=== PATIENT | female | born 1970 | race Caucasian/White ===

== ENCOUNTER 2020-01-03 08:51 | Outpatient (CLI) | payer OTHER, SELFPAY ==
--- NOTE | ~2020-01-03 | MM_ITS ---
EXAMINATION: MM screening silvino BI w mamadou HISTORY: Screening TECHNIQUE: Craniocaudal and mediolateral oblique 3-D tomosynthesis images were obtained and synthetic 2-D images were generated. CAD analysis was submitted and interpreted. COMPARISON: Comparison to multiple prior studies sequentially, with oldest reviewed study dated 06/2013. BREAST PARENCHYMAL COMPOSITION: The breasts are heterogeneously dense, which may obscure small masses . FINDINGS: There is a new focal asymmetry in the upper outer quadrant of the left breast. The right br east is stable without evidence for malignancy. IMPRESSION: 1. New focal left breast asymmetry, upper outer quadrant. 2. Additional mammographic views and possible breast ultrasound are recommended. BI-RADS Category 0: Incomplete: Needs additional imaging evaluation. Reviewed, dictated and finalized at location A. IMPRESSION: 1. New focal left breast asymmetry, upper outer quadrant. 2. Additional mammographic views and possible breast ultrasound are recommended . BI-RADS Category 0: Incomplete: Needs additional imaging evaluation.
== END 2020-01-03 08:52 | disposition home or self-care (01) ==
PROVIDERS: PCP Family Medicine; Visit Provider Family Medicine
DX: Z12.31 Encounter for screening mammogram for malignant neoplasm of breast (principal); R92.8 Other abnormal and inconclusive findings on diagnostic imaging of breast
CPT/HCPCS: 77063; 77067

== ENCOUNTER 2020-01-26 11:49 | Outpatient (CLI) | payer OTHER, SELFPAY ==
--- NOTE | ~2020-01-26 | MMUS_ITS ---
EXAMINATION: MM diagnostic mammo unilat LT, US breast LT limited HISTORY: New focal mammographic asymmetry of upper outer quadrant of left breast on 01/03/2020 screenin g mammogram examination TECHNIQUE: Additional 3-D tomosynthesis images of the left breast were performed and synthetic 2-D im ages were generated. Rolled medial craniocaudal and rolled lateral craniocaudal views were performed. CAD analysis was submitted and interpreted. High resolution upper outer quadrant left breast ultraso und was performed. COMPARISON: 01/03/2020 bilateral digital screening mammogram FINDINGS: MAMMOGRAPHIC FINDINGS: No reproducible mass or architectural distortion or any malignant calcification, skin thickening or r etraction is evident. The heterogeneous dense stroma however may obscure a mass; upper outer quadrant left breast ultrasound examination was performed ULTRASOUND: 1:00 5 cm from nipple: 5 x 6 x 8 mm sonolucency with through transmission posterior enhancement brenda tible with simple cyst 2:00 8 cm from nipple: 2.9 x 3.4 mm simple cyst IMPRESSION: 1. No mammographic evidence of malignancy 2. Routine mammographic screening is recommended. BI-RADS Category 2: Benign finding(s). Reviewed, dictated and finalized at location A. IMPRESSION: 1. No mammographic evidence of malignancy 2. Routine mammographic screening is recommended. BI-RADS Category 2: Benign finding(s).
== END 2020-01-26 11:50 | disposition home or self-care (01) ==
LOC: ANHIMG 11:50
PROVIDERS: PCP Family Medicine; Visit Provider Family Medicine
DX: R92.2 Inconclusive mammogram (principal)
CPT/HCPCS: 76642; 77065

== ENCOUNTER 2021-02-21 09:10 | Outpatient (CLI) | payer OTHER, SELFPAY ==
--- NOTE | ~2021-02-21 | MM_ITS ---
EXAMINATION: MM screening silvino BI w mamadou HISTORY: Screening mammogram TECHNIQUE: Craniocaudal and mediolateral oblique 3-D tomosynthesis images were obtained and synthetic 2-D images were generated. CAD analysis was submitted and interpreted. COMPARISON: 01/26/2020 diagnostic left mammogram and limited left breast ultrasound 01/03/2020, 10/06/2018, 09/24/2017 bilateral digital screening mammogram examinations BREAST PARENCHYMAL COMPOSITION: There are scattered areas of fibroglandular density. FINDINGS: There is no evidence of suspicious mass, calcification, or architectural distortion to sugg est malignancy in either breast. There has been no suspicious interval change. IMPRESSION: 1. No mammographic evidence of malignancy. 2. Recommend routine screening mammography in one year. BI-RADS Category 2: Benign finding(s). Reviewed, dictated and finalized at location A.
== END 2021-02-21 09:11 | disposition home or self-care (01) ==
LOC: ANHIMG 09:12
PROVIDERS: PCP Family Medicine; Visit Provider Family Medicine
DX: Z12.31 Encounter for screening mammogram for malignant neoplasm of breast (principal)
CPT/HCPCS: 77063; 77067

== ENCOUNTER 2021-04-18 00:52 | Day surgery (SDC) | payer OTHER, MEDICAID, SELFPAY ==
[2021-04-07 11:22] VITALS: BMI 33.3
[2021-04-18 09:52] VITALS: BP 136/68; PULSE 67; RESP 18; TEMP 35.8; O2SAT 97; BMI 36.1
[2021-04-18] MEDS: LACTATED RINGERS 1,000 ML 150 ML IV CONT (10:24)
--- NOTE | 2021-04-18 10:24 | WPDANESEPPF ---
Anes - Initial Pre Proc Eval Procedure: Operation Date: 04/18/21 11:00 Proposed Procedures p Esophagogastroduodenoscopy - Baljeet Cloud MD Date/Time: 04/18/21 10:24 Surgeon: Baljeet Cloud MD Pre Op Diagnosis: dysphagia, GERD Patient Data Age: 50 Gender: F Height: 1.65 m Weight: 98.4 kg Last Vital Signs Temp 35.8 C L 04/18/21 09:52 Pulse 67 04/18/21 09:52 Resp 18 04/18/21 09:52 BP 136/68 04/18/21 09:52 Pulse Ox 97 04/18/21 09:52 Allergies Allergy/AdvReac Type Severity Reaction Status Date / Time No Known Allergies Allergy Verified 04/18/21 10:01 Home Medications Medication Instructions Recorded Confirmed Type famotidine 40 mg tablet 40 mg PO Q12H #180 tablet 07/10/20 04/18/21 Rx atorvastatin 10 mg tablet 10 mg PO DAILY #90 tablet 04/07/21 04/18/21 Rx breonna.[id number] 1 tablet PO DAILY 04/07/21 04/18/21 History [Apple Cider Vinegar Diet] lisinopril 5 mg tablet 5 mg PO DAILY #90 tablet 04/07/21 04/18/21 Rx Patient hx anesthesia problems: none Family hx anesthesia problems: none Results Review: All pre-operative results and documents have been reviewed as part of the pre-operative evaluation. [facility] Past Medical History Medical History (Updated 03/13/21 @ 11:19 by Angelic Mckeon MD) Prediabetes (06/16/17) Family History Family History Father Patient's father is , Onset Age: 46 Sibling Family history of multiple sclerosis Diabetes mellitus Family history of cardiovascular disease Mother Hypertension Family history of cardiovascular disease Family history of malignant neoplasm of breast in first degree relative Other Cerebrovascular accident Family history of Hodgkin's lymphoma Family history of allergic disorder Family history of arthritis Family history of attention deficit hyperactivity disorder (ADHD) Family history of bipolar disorder Family history of glaucoma Family history of kidney disease Family history of malignant neoplasm Family history of malignant neoplasm of breast Family history of mental disorder Social History Social History Smoking packs per day: 1 Smoking cigarettes per day: 20.0 Years smoked: 6 Smoking pack-years: 6.00 Smoking status: Former smoker Tobacco type: cigarettes and e-cigarettes/vaping Smoking end date: 05/03/11 Additional smoking assessment comments: quit cigarettes, still vapes daily Alcohol intake: current Alcohol use details: occasional social Substance use: never Substance use type: does not use Living arrangements: with family Additional living arrangements comments: lives with spouse & adult children, son has Downs' syndrome and requires care Spiritual care concerns: No Anes - Eval Final PreProcedure Day of Procedure 04/18/21 10:24 Patient weight: obese Heart: regular rate and rhythm Lungs: clear to auscultation Airway: Mallampati scale class II Neurological: alert and oriented Last oral intake: >/= 8 hours ASA classification: III Emergent: no Anesthetic plan: proceed Anesthesia type and monitoring: general GIVS and standard monitoring Results Review: All pre-operative results and documents have been reviewed as part of the pre-operative evaluation. Informed Consent: The patient's anesthetic plan and its attendant risks and benefits were discussed with the patient/family/POA. Questions were solicited and answers provided to the satisfaction of the patient/family/POA.
[2021-04-18 10:29] LABS: Glucose Point of Care 129 mg/dl (65-105)
--- NOTE | 2021-04-18 10:41 | WPDGICN ---
Assessment and Plan Assessment and plan (1) Gastroesophageal reflux: Qualifiers: Esophagitis presence: with esophagitis Esophagitis bleeding: without hemorrhage Qualified Code(s): K21.00 - Gastro-esophageal reflux disease with esophagitis, without bleeding Code(s): K21.9 - Gastro-esophageal reflux disease without esophagitis Status: Acute Assessment and Plan: Patient has a history of heartburn suspicious for GE reflux. Has been poorly responsive to famotidine. For this reason EGD will be performed to evaluate more thoroughly. (2) Dysphagia: Qualifiers: Dysphagia type: esophageal phase Qualified Code(s): R13.19 - Other dysphagia Code(s): R13.10 - Dysphagia, unspecified Status: Acute Assessment and Plan: Patient has difficulty swallowing intermittently. Symptoms include coughing and choking typically with liquids. Suspect this could be a motility disorder in her throat. This will be evaluated by EGD but if normal then modified barium swallow may be beneficial. (3) Obesity: Qualifiers: Obesity type: unspecified obesity type Obesity classification: adult class 2 (BMI 35 - 39.9) Serious obesity comorbidity presence: with serious comorbidity Body mass index: BMI 35.0-35.9 Qualified Code(s): E66.01 - Morbid (severe) obesity due to excess calories; Z68.35 - Body mass index [BMI] 35.0-35.9, adult Code(s): E66.9 - Obesity, unspecified Status: Acute Assessment and Plan: Increase activity and calorie restriction or encourage. GI Consult Note Consult date/time: 04/18/21 10:41 HPI: Olive Khalil is a 50 year old female Presents for EGD. Patient has a long history of heartburn. Previously on ranitidine she was changed to famotidine when this was withdrawn from the market. This has failed to adequately control her heartburn. She does note that often when swallowing she will cough and choke and unable to breathe. She has no difficulty swallowing food otherwise. She states sometimes she will lose are breath when talking and not eating. She denies any bleeding or weight loss. She has never had a modified barium swallow. She presents today for EGD. Review of Systems Review of Systems: All systems reviewed & are unremarkable except as noted in HPI and below PMFSH Past Medical History Medical History (Updated 03/13/21 @ 11:19 by Angelic Mckeon MD) Prediabetes (06/16/17) Family History Family History Father Patient's father is , Onset Age: 46 Sibling Family history of multiple sclerosis Diabetes mellitus Family history of cardiovascular disease Mother Hypertension Family history of cardiovascular disease Family history of malignant neoplasm of breast in first degree relative Other Cerebrovascular accident Family history of Hodgkin's lymphoma Family history of allergic disorder Family history of arthritis Family history of attention deficit hyperactivity disorder (ADHD) Family history of bipolar disorder Family history of glaucoma Family history of kidney disease Family history of malignant neoplasm Family history of malignant neoplasm of breast Family history of mental disorder Social History Social History Smoking packs per day: 1 Smoking cigarettes per day: 20.0 Years smoked: 6 Smoking pack-years: 6.00 Smoking status: Former smoker Tobacco type: cigarettes and e-cigarettes/vaping Smoking end date: 05/03/11 Additional smoking assessment comments: quit cigarettes, still vapes daily Alcohol intake: current Alcohol use details: occasional social Substance use: never Substance use type: does not use Living arrangements: with family Additional living arrangements comments: lives with spouse & adult children, son has Downs' syndrome and req
[2021-04-18 11:48] VITALS: BP 111/70; PULSE 58; RESP 20; O2SAT 100
[2021-04-18 11:58] VITALS: BP 107/77; PULSE 67; RESP 24; O2SAT 100
[2021-04-18 12:08] VITALS: BP 134/79; PULSE 56; RESP 18; O2SAT 100
== END 2021-04-18 12:27 | disposition home or self-care (01) ==
PROVIDERS: PCP Family Medicine; Visit Provider Internal Medicine Gastroenterology
PROC: 0DJ08ZZ Inspection of Upper Intestinal Tract, Via Natural or Artificial Opening Endoscopic (ICD-10-PCS; CPT 43235; principal; 2021-04-18 11:00)
DX: R13.19 Other dysphagia (principal); K31.89 Other diseases of stomach and duodenum; K21.9 Gastro-esophageal reflux disease without esophagitis; R73.03 Prediabetes; Z87.891 Personal history of nicotine dependence; E66.9 Obesity, unspecified; Z68.36 Body mass index [BMI] 36.0-36.9, adult
CPT/HCPCS: 43251; 82948; 88305; J2704; J7120

== ENCOUNTER 2021-05-07 08:08 | Outpatient (CLI) | payer OTHER, MEDICAID, SELFPAY ==
--- NOTE | ~2021-05-07 | XR_ITS ---
EXAMINATION: XR barium swallow modified DATE: 05/07/2021 08:47 INDICATION: Dysphagia. TECHNIQUE: The patient was given barium-containing material of multiple consistencies to swallow by lindsay harp speech pathologist while I performed fluoroscopy. Dose-area product was 0.772 Gy-cm2. 1.5 minutes fluoroscopy time FINDINGS: Oral Stage: Normal Pharyngeal Phase: Normal Cervical/Esophageal Stage: Normal IMPRESSION: Modified esophagram findings as above. Please refer [facility] the [facility] Reviewed, dictated and finalized at Location A. Reviewed, dictated and finalized at location A. DER'S LABOURER IMPRESSION: Modified esophagram findings as above. Please refer to the speech t herapy report for specific recommendations.
--- NOTE | 2021-05-07 10:01 | STOPEVAL ---
Thank you for referring Olive Khalil to [facility].? Attending Provider: Baljeet Cloud MD Therapy Assessment Status Assessment Status Assessment Status Evaluation Outpatient Past Medical History Past Medical History Source of Past Medical History Patient Neurological History Hx Neurological Disorders No Significant History Cardiovascular History Hx Cardiac Disorders No Significant History Respiratory History Hx Respiratory Disorders No Significant History Gastrointestinal History Hx Gastroesophageal Reflux Disease Yes Genitourinary History Hx Genitourinary Disorders No Significant History Musculoskeletal History Hx Musculoskeletal Disorders No Significant History Hematological History Hx Hematological Disorders No Significant History Endocrine History Hx Endocrine Disorders No Significant History HEENT History Hx HEENT Disorders No Significant History Integumentary History Hx Skin Disorders No Significant History Reproductive History Hx Reproductive Disorders No Significant History Psychosocial History Hx Psychiatric Disorders No Significant History Pain History History of Any Previous or Ongoing No Significant History Instance of Pain Anesthesia History Hx Anesthesia Reactions No Significant History Evaluation Information Problem Diagnosis Dysphagia, other Onset One year Cause unknown Subjective Information The patient reports she began Query Text:As Reported By Patient/ having difficulty swallowing Family approximately one year ago, worsening and becoming more frequent in the past 3-4 months. Patient states that she becomes choked on anything, food, liquid, and even own saliva. Occasionally symptoms are so severe that she cannot breathe until eventually she relaxes. She reports a history of acid reflux so significant that she develops pain in her chest and upper left shoulder area. She reports she saw Dr. Cloud for an endoscopy who discovered and removed a polyp in the duodenum area. Diagnostic Tests Other Tests For This Problem Yes: Dr. Cloud performed an endoscopy. Pain Assessment Timing of Pain Assessment Timing of Pain Assessment Assessment Self Report Self Report Pain Level 0 Pain Score Pain Score 0: Self Report ST Clinical Summary
== END 2021-05-07 08:09 | disposition home or self-care (01) ==
LOC: ANHIMG 08:20
PROVIDERS: PCP Family Medicine; Visit Provider Internal Medicine Gastroenterology
DX: R13.19 Other dysphagia (principal)
CPT/HCPCS: 92611

== ENCOUNTER 2021-05-19 10:14 | Outpatient (CLI) | payer OTHER, MEDICAID, SELFPAY ==
--- NOTE | ~2021-05-19 | US_ITS ---
EXAMINATION: US thyroid DATE: 05/19/2021 10:41 INDICATION: Dysphagia. TECHNIQUE: Multiple ultrasound images of the thyroid were obtained. COMPARISON: Ultrasound 12/06/2012 FINDINGS: The right thyroid lobe measures 5.6 x 2.1 x 1.8 cm. The left thyroid lobe measures 4.6 x 1.4 x 1.5 c m. In the right thyroid lobe, there is a 4 mm nodule. In the left thyroid lobe, there is an 8 mm gerson id, hypoechoic, [id number]-wplg nodule with lobulated margin without echogenic foci (TI-RADS TR4). IMPRESSION: 1. Small thyroid nodules, likely not clinically significant. No follow-up is needed. Reviewed, dictated and finalized at location A. TING MACHINE OPERATOR IMPRESSION: 1. Small thyroid nodules, likely not clinically significant. No follow-up is ne eded.
== END 2021-05-19 10:15 | disposition home or self-care (01) ==
LOC: ANHIMG 10:18
PROVIDERS: PCP Family Medicine; Visit Provider Otolaryngology
DX: R13.10 Dysphagia, unspecified (principal); E04.2 Nontoxic multinodular goiter
CPT/HCPCS: 76536

== ENCOUNTER → 2021-08-06 07:51 | Outpatient (CLI) | payer OTHER, SELFPAY ==
--- NOTE | ~2021-08-06 | US_ITS ---
US axilla LT 08/06/2021 08:10 Indication: Localized swelling with palpable lump Procedure: High-resolution Limited ultrasound of the left axilla in the area of palpable concern Comparison: No prior studies for comparison. Findings: In the area of palpable concern in the left axilla there is a superficially located [address] No suspicious masses to suggest malignancy. Impression: 1: Benign 3 mm left axillary cyst. No sonographic evidence for malignancy. BI-RADS CATEGORY 2 - BENIGN FINDINGS Reviewed, dictated and finalized at location A. Impression: 1: Benign 3 mm left axillary cyst. No sonographic evidence for malignancy. BI-RADS CATEGORY 2 - BENIGN FINDINGS
== END ==
PROVIDERS: PCP Family Medicine; Visit Provider Physician Assistant
DX: R22.32 Localized swelling, mass and lump, left upper limb (principal); N60.02 Solitary cyst of left breast
CPT/HCPCS: 76882

== ENCOUNTER 2021-09-15 10:48 | Emergency (ER) | payer OTHER, MEDICAID, SELFPAY ==
--- NOTE | ~2021-09-15 | XR_ITS ---
EXAMINATION: XR chest 2V 09/15/2021 11:24 INDICATION: Cough for 6 weeks PROCEDURE: 2 view chest COMPARISON: 06/29/2015 FINDINGS: The lungs are clear. The cardiomediastinal silhouette is within normal limits. There are no pleural effusions. There is no pneumothorax suspected. IMPRESSION: 1: NO ACUTE CARDIOPULMONARY DISEASE. Reviewed, dictated and finalized at location A.
--- NOTE | 2021-09-15 10:55 | ED.URI ---
HPI - URI/Sore Throat General Chief Complaint: Upper Respiratory Infection Stated Complaint: fatigue cough runny nose Time Seen by Provider: 09/15/21 11:28 Source: patient and RN notes reviewed Mode of arrival: ambulatory Limitations: no limitations History of Present Illness HPI Narrative: 51-year-old female presents with concern for cough, general malaise. Reports she has been sick on and off since mid August. Reports she was diagnosed with influenza at the end of August, reports she took Tamiflu starting on day 5 of her symptoms. Reports most of her symptoms went away, however she had a scratchy throat since being diagnosed with flu and has since had worsening cough. She reports persistent productive cough, chest heaviness. Reports coughing that causes her to vomit. Reports she is taking antihistamines. She denies fever, body aches, chills. MD elicited complaint: cough Related Data Allergies Allergy/AdvReac Type Severity Reaction Status Date / Time No Known Allergies Allergy Verified 07/31/21 09:38 Review of Systems Review of Systems: CONSTITUTIONAL: Reports malaise. Denies chills, sweats, or fever. EYES: Denies visual changes, redness, or discharge. ENT: Denies rhinorrhea, congestion, sinus pain, otalgia and sore throat. CARDIOVASCULAR: Denies chest pain, palpitations, or edema. RESPIRATORY: Reports persistent productive cough. Denies dyspnea. GASTROINTESTINAL: Denies abdominal pain, nausea, diarrhea reports vomiting SKIN: Denies rash or itching. MUSCULOSKELETAL: Denies myalgia. NEUROLOGIC: Denies headache. All systems reviewed & are unremarkable except as noted in HPI and below PMFSH Past Medical History Medical History Prediabetes (06/16/17) Family History Family History Father Patient's father is , Onset Age: 46 Sibling Family history of multiple sclerosis Diabetes mellitus Family history of cardiovascular disease Mother Hypertension Family history of cardiovascular disease Family history of malignant neoplasm of breast in first degree relative Other Cerebrovascular accident Family history of Hodgkin's lymphoma Family history of allergic disorder Family history of arthritis Family history of attention deficit hyperactivity disorder (ADHD) Family history of bipolar disorder Family history of glaucoma Family history of kidney disease Family history of malignant neoplasm Family history of malignant neoplasm of breast Family history of mental disorder Social History Social History Smoking packs per day: 1 Smoking cigarettes per day: 20.0 Years smoked: 6 Smoking pack-years: 6.00 Tobacco type: cigarettes and e-cigarettes/vaping Smoking end date: 05/03/11 Additional smoking assessment comments: quit cigarettes, still vapes daily Alcohol intake: current Alcohol use details: occasional social Substance use: never Substance use type: does not use Additional living arrangements comments: lives with spouse & adult children, son has Downs' syndrome and requires care Spiritual care concerns: No Comments At time of signature, agree with nursing past medical, surgical, social and family history. There is no relevant family history pertinent to the presenting complaint Exam Narrative: GENERAL: Well-appearing, well-nourished, and in no acute distress. HEAD: Normocephalic EYES: PERRLA, conjunctivae clear ENT: Nares clear. Mucous membranes moist. TM pearly talbot with sharp light reflex bilaterally; no tragal tenderness. Oropharynx not erythematous without lesions. Tonsils not enlarged and without exudate, no drooling, no hoarseness, no trismus, uvula midline. NECK: Supple. No lymphadenopathy CHEST: Clear to auscultation, breath sounds diminished in the bases. No wheezing, rhonchi, rales, or strido
[2021-09-15 11:02] VITALS: BP 119/87; PULSE 88; RESP 20; TEMP 37.1; O2SAT 95
== END 2021-09-15 11:46 | disposition home or self-care (01) ==
PROVIDERS: Emergency Provider Nurse Practitioner; PCP Family Medicine
DX: J06.9 Acute upper respiratory infection, unspecified (principal); R73.03 Prediabetes; F17.290 Nicotine dependence, other tobacco product, uncomplicated
CPT/HCPCS: 71046; 99213; G0463

== ENCOUNTER → 2021-11-19 09:48 | Outpatient (CLI) | payer OTHER, MEDICAID, SELFPAY ==
--- NOTE | ~2021-11-19 | US_ITS ---
EXAMINATION: US venous doppler LE RT DATE: 11/19/2021 10:25 INDICATION: Right lower limb pain TECHNIQUE: Grayscale ultrasound images without and with compression and Doppler ultrasound images of the right lower extremity veins were obtained. COMPARISON: 09/06/2013 FINDINGS: The visualized portions of right common femoral vein, profunda (deep) femoral vein, femoral vein, pop liteal vein, peroneal trunk, posterior tibial veins, peroneal veins, gastrocnemius vein and greater s aphenous vein outflow remain patent. IMPRESSION: 1. No deep venous thrombosis in the right lower limb. Reviewed, dictated and finalized at location A.
== END ==
PROVIDERS: PCP Family Medicine; Visit Provider Internal Medicine Hematology & Oncology
DX: M79.604 Pain in right leg (principal)
CPT/HCPCS: 93971

== ENCOUNTER 2022-03-28 10:10 | Outpatient (CLI) | payer OTHER, MEDICAID, SELFPAY ==
--- NOTE | ~2022-03-28 | MM_ITS ---
EXAMINATION: MM screening silvino BI w mamadou HISTORY: Screening mammogram TECHNIQUE: Craniocaudal and mediolateral oblique 3-D tomosynthesis images were obtained and synthetic 2-D images were generated. CAD analysis was submitted and interpreted. COMPARISON: 02/21/2021 bilateral screening mammogram 01/26/2020 diagnostic left mammogram and limited left breast ultrasound 01/03/2020, 10/06/2018 bilateral screening mammogram examinations BREAST PARENCHYMAL COMPOSITION: There are scattered areas of fibroglandular density. FINDINGS: There is no evidence of suspicious mass, calcification, or architectural distortion to sugg est malignancy in either breast. There has been no suspicious interval change. IMPRESSION: 1. No mammographic evidence of malignancy. 2. Recommend routine screening mammography in one year. BI-RADS Category 1: Negative Reviewed, dictated and finalized at location A. HOME HEALTH
== END 2022-03-28 10:11 | disposition home or self-care (01) ==
PROVIDERS: PCP Family Medicine; Visit Provider Family Medicine
DX: Z12.31 Encounter for screening mammogram for malignant neoplasm of breast (principal)
CPT/HCPCS: 77063; 77067

== ENCOUNTER 2022-11-08 09:50 | Outpatient (CLI) | payer OTHER, MEDICAID, SELFPAY ==
--- NOTE | ~2022-11-08 | MR_ITS ---
EXAMINATION: MR lumbar spine wo con DATE: 11/08/2022 10:56 INDICATION: Right leg weakness. Sciatica. TECHNIQUE: Magnetic resonance imaging (MRI) of the lumbar spine was performed without intravenous con trast. Sequences included sagittal T2-weighted FSE, sagittal T2-weighted FS FSE, sagittal T1-weighted FSE, and axial T2-weighted FSE. COMPARISON: Lumbar spine MRI 01/02/2014 FINDINGS: Bone alignment is normal. There is mild chronic anterior wedging of T12 vertebral body. Int ervertebral disc heights are normal. The distal spinal cord signal intensity is normal. The conus med ullaris is at L1. The following disc levels are specifically discussed: L1-L2: The disc does not extend beyond the endplate margin. There is no facet joint osteoarthritis. T here is no neural foraminal stenosis. There is no central canal stenosis. L2-L3: The disc does not extend beyond the endplate margin. There is mild bilateral facet joint osteo arthritis. There is no neural foraminal stenosis. There is no central canal stenosis. L3-L4: The disc is mildly bulging. There is moderate right and mild left facet joint osteoarthritis. There is mild right neural foraminal stenosis. There is no central canal stenosis. L4-L5: The disc is mildly bulging. There is severe right and moderate left facet joint osteoarthritis . There is mild bilateral neural foraminal stenosis. There is no central canal stenosis. L5-S1: There is a central protrusion. There is mild bilateral facet joint osteoarthritis. There is no neural foraminal stenosis. There is mild central canal stenosis. IMPRESSION: 1. Mild lumbar spondylosis, stable from 01/02/2014 Reviewed, dictated and finalized at location A.
--- NOTE | ~2022-11-08 | MR_ITS ---
EXAMINATION: MR cervical spine wo con DATE: 11/08/2022 10:49 INDICATION: Right arm weakness and numbness and pain. TECHNIQUE: Magnetic resonance imaging (MRI) of the cervical spine was performed without intravenous c ontrast. COMPARISON: Cervical spine MRI 08/15/2011 FINDINGS: There is hypolordosis of cervical spine. Vertebral body heights are normal. There is a cassi ngioma in T2 vertebral body. There is mildly decreased disc height at C5-C6. The spinal cord signal i ntensity is normal. The following disc levels are specifically discussed: C2-C3: The disc does not extend beyond the endplate margin. There is no uncovertebral joint osteoarth ritis. There is no facet joint osteoarthritis. There is no neural foraminal stenosis. There is no oscar tral canal stenosis. C3-C4: There is a central protrusion. There is mild left uncovertebral joint osteoarthritis. There is mild right and moderate left facet joint osteoarthritis. There is no neural foraminal stenosis. Ther e is mild central canal stenosis. C4-C5: There is a central protrusion. There is no uncovertebral joint osteoarthritis. There is no fac et joint osteoarthritis. There is no neural foraminal stenosis. There is mild central canal stenosis. C5-C6: The disc is bulging. There is mild bilateral uncovertebral joint osteoarthritis. There is no f acet joint osteoarthritis. There is mild right neural foraminal stenosis. There is mild central canal stenosis with ventral indentation of the spinal cord. C6-C7: There is a central extrusion. There is mild left uncovertebral joint osteoarthritis. There is no facet joint osteoarthritis. There is no neural foraminal stenosis. There is mild central canal patrica nosis. C7-T1: The disc does not extend beyond the endplate margin. There is no uncovertebral joint osteoarth ritis. There is moderate bilateral facet joint osteoarthritis. There is mild bilateral neural foramin al stenosis. There is no central canal stenosis. IMPRESSION: 1. Mild cervical spondylosis, stable from 08/15/2011. Reviewed, dictated and finalized at location A.
== END 2022-11-08 09:51 | disposition home or self-care (01) ==
PROVIDERS: PCP Family Medicine; Visit Provider Family Medicine
DX: M47.22 Other spondylosis with radiculopathy, cervical region (principal); M47.26 Other spondylosis with radiculopathy, lumbar region
CPT/HCPCS: 72141; 72148

== ENCOUNTER 2023-04-13 09:12 | Outpatient (CLI) | payer OTHER, SELFPAY ==
--- NOTE | ~2023-04-13 | MM_ITS ---
EXAMINATION: MM screening silvino BI w mamadou HISTORY: Screening TECHNIQUE: Craniocaudal and mediolateral oblique 3-D tomosynthesis images were obtained and synthetic 2-D images were generated. CAD analysis was submitted and interpreted. COMPARISON: Comparison to multiple prior studies sequentially, with oldest reviewed study dated 09/24. BREAST PARENCHYMAL COMPOSITION: Breast composed of scattered areas of fibroglandular density FINDINGS: There is no evidence of suspicious mass, calcification, or architectural distortion to sugg est malignancy in either breast. There has been no suspicious interval change. IMPRESSION: 1. No mammographic evidence of malignancy. 2. Recommend routine screening mammography in one year. BI-RADS Category 1: Negative Reviewed, dictated and finalized at location A. 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
== END 2023-04-13 09:13 | disposition home or self-care (01) ==
PROVIDERS: PCP Family Medicine; Visit Provider Family Medicine
DX: Z12.31 Encounter for screening mammogram for malignant neoplasm of breast (principal)
CPT/HCPCS: 77063; 77067

== ENCOUNTER 2023-12-13 16:40 | Outpatient (CLI) | payer OTHER, SELFPAY ==
--- NOTE | ~2023-12-13 | XR_ITS ---
XR chest 2V Ordering provider: Cliff Waite APRN History: 53 years Female with . cough and fever x 15 days . Comparison: September 15, 2021 FINDINGS: MEDIASTINUM: The cardiac silhouette is not enlarged. LUNGS: No infiltrates, effusions or pneumothorax. OTHER: No free air under the diaphragm. IMPRESSION: No acute cardiopulmonary pathology. Reviewed, dictated and finalized at location A.
== END 2023-12-13 16:41 | disposition home or self-care (01) ==
LOC: ANHIMG 16:41
PROVIDERS: PCP Family Medicine; Visit Provider Student in an Organized Health Care Education/Training Program
DX: R05.9 Cough, unspecified (principal); R50.9 Fever, unspecified
CPT/HCPCS: 71046

== ENCOUNTER 2024-02-01 07:54 | Outpatient (CLI) | payer OTHER, SELFPAY | END 2024-02-01 07:55 | disposition home or self-care (01) | PROVIDERS: PCP Family Medicine; Visit Provider Otolaryngology | DX: H90.42 Sensorineural hearing loss, unilateral, left ear, with unrestricted hearing on the contralateral side (principal); H93.13 Tinnitus, bilateral; R42 Dizziness and giddiness; J32.2 Chronic ethmoidal sinusitis | CPT/HCPCS: 92557; 92567 ==

== ENCOUNTER 2024-02-25 08:57 | Outpatient (CLI) | payer OTHER, SELFPAY ==
--- NOTE | ~2024-02-25 | NM_ITS ---
EXAMINATION: NM mandy stress w perfusion DATE: 02/25/2024 11:02 CDT INDICATION: Angina pectoris TECHNIQUE: Rest images were obtained following intravenous administration of 10.7 mCi Tc99m tetrofosm in (Myoview). The patient was infused intravenously with Lexiscan (regadenoson). Then, 37.2 mCi Tc99m tetrofosmin (Myoview) was administered intravenously, and stress images were obtained. Data was clarita nstructed into short axis and horizontal and vertical long axis SPECT images. Gated SPECT images were also obtained. COMPARISON: None. FINDINGS: There is no definite reversible or fixed perfusion abnormality to suggest ischemia or infar ction. There is no segmental wall motion abnormality. Left ventricular ejection fraction measures 7 4%. IMPRESSION: 1. No definite ischemia or infarct. 2. Normal left ventricular ejection fraction measuring 74%. Reviewed, dictated and finalized at location B.
--- NOTE | 2024-02-25 09:14 | EST_ITS ---
Patient Info Name: Olive Khalil Age: 53 years : 1970 Gender: Female Ht: 65 in Wt: 220 lbs BSA: 2.18 m2 HR: 59 bpm BP: 124 / 78 mmHg Exam Date: 02/25/2024 9:55 AM Exam Location: Echo Lab Patient Status: Outpatient Admit Date: 02/25/2024 Staff Ordering Physician: Angelic Mckeon MD Attending Provider: Angelic Mckeon MD Exercise Technologist: Lynn Hicks [facility] Exercise Physician: Al Morrow DO Exam Type: CA stress mandy w NM Study Info A regadenoson stress test was performed. Summary 1. 1. Negative lexiscan stress test for ischemic ST changes by ECG criteria. 2. 2. Stable hemodynamics throughout the test. 3. 3. Nuclear scan to follow and will be reported separately. Please correlate with it. 4. 4. Patient informed of the above results. Protocol: Lexiscan Stress ECG Details Stage: REST Duration (min): 1 min : 54 sec HR (bpm): 57 SBP (mmHg): 124 DBP (mmHg): 78 Stage: REST Duration (min): 11 min : 33 sec HR (bpm): 58 SBP (mmHg): 124 DBP (mmHg): 78 Stage: STAGE 1 Duration (min): 0 min : 59 sec HR (bpm): 76 SBP (mmHg): 126 DBP (mmHg): 83 Stage: RECOVERY Duration (min): 1 min : 0 sec HR (bpm): 77 SBP (mmHg): 126 DBP (mmHg): 83 Stage: RECOVERY Duration (min): 2 min : 0 sec HR (bpm): 75 SBP (mmHg): 126 DBP (mmHg): 83 Stage: RECOVERY Duration (min): 3 min : 0 sec HR (bpm): 74 SBP (mmHg): 113 DBP (mmHg): 74 Stage: RECOVERY Duration (min): 3 min : 5 sec HR (bpm): 73 SBP (mmHg): 113 DBP (mmHg): 74 Rest HR: 58 bpm Peak HR: 78 bpm Rest Sys BP: 124 mmHg Peak Sys BP: 126 mmHg Max Pred HR: 168 bpm % Max Pred HR: 46 % Target HR: 143 bpm Max RPP: 9,828 bpm*mmHg Termination Reason: Completed protocol Cardiac Symptoms: Chest pain, Shortness of breath, Nausea Total Time: 1 min : 0 sec Rest Mack BP: 78 mmHg Peak Mack BP: 83 mmHg Total Dose: 0.4 mg Resting ECG Sinus bradycardia. Stress ECG No ST changes. Arrhythmias None. Report Signatures
== END 2024-02-25 08:58 | disposition home or self-care (01) ==
PROVIDERS: PCP Family Medicine; Visit Provider Family Medicine
DX: I20.89 Other forms of angina pectoris (principal); E11.40 Type 2 diabetes mellitus with diabetic neuropathy, unspecified
CPT/HCPCS: 78452; 93017; A9502; J2785

== ENCOUNTER 2024-04-03 09:24 | Outpatient (CLI) | payer OTHER, SELFPAY ==
--- NOTE | 2024-04-03 09:49 | ECHO_ITS ---
Patient Info Name: Olive Khalil Age: 53 years : 1970 Gender: Female Ht: 65 in Wt: 220 lbs BSA: 2.18 m2 HR: 54 bpm BP: 115 / 77 mmHg Heart Rhythm: Sinus Rhythm Technical Quality: Fair Exam Date: 04/03/2024 9:51 AM Exam Location: Echo Lab Patient Status: Outpatient Admit Date: 04/03/2024 Staff Ordering Physician: Al Morrow DO Light Rail Train Operator: Lynn Hicks RDCS Attending Provider: Al Morrow DO Referring Physician: Cristhian SANCHEZ; Exam Type: CA echo doppler color flow Study Info Indications R06.09 - Other forms of dyspnea Complete two-dimensional, color flow and Doppler transthoracic echocardiogram is performed. Summary 1. Complete two-dimensional, color flow and Doppler transthoracic echocardiogram is performed. 2. Left ventricular chamber dimension is normal. 3. Left ventricular systolic function is normal, estimated at 60-65%. 4. The left ventricular diastolic function is abnormal. 5. E/e' 12 is mildly elevated. Left Ventricle E/e' 12 is mildly elevated. Left ventricular chamber dimension is normal. Left ventricular systolic function is normal, estimated at 60-65%. The left ventricular diastolic function is abnormal. Right Ventricle Right ventricular systolic function is normal and with normal TAPSE 2.8 cm. Right ventricular chamber dimension is normal. Left Atria Left atrial chamber dimension is normal. Right Atria Right atrial chamber dimension is normal. Aortic Valve The aortic valve is trileaflet. There is no aortic valve stenosis. There is no aortic valve regurgitation. Pulmonic Valve There is no pulmonic regurgitation. Mitral Valve There is no mitral valve stenosis. There is no mitral valve regurgitation. Tricuspid Valve There is no tricuspid valve regurgitation. Pericardium/Pleural There is no pericardial effusion. Inferior Vena Cava Normal inferior vena cava with >50% collapse upon inspiration consistent with normal right atrial pressure, 5 mmHg. Aorta The aortic root size at the sinus of Valsalva is normal. Left Ventricular Outflow Tract Name Value Normal LVOT 2D LVOT Diameter 2.0 cm LVOT Doppler LVOT Peak Gradient 4 mmHg LVOT Mean Gradient 2 mmHg LVOT VTI 20 cm LVOT VTI/AV VTI Ratio 0.8 LVOT Stroke Volume 61 ml LVOT CO 3.2 l/min LVOT CI 1.5 l/min/m2 Pulmonic Valve Name Value Normal RVOT Doppler RVOT Peak Gradient 2 mmHg PV Doppler PV Peak Gradient 3 mmHg Mitral Valve Name Value Normal MV Doppler MV Decel [place] 604 cm/s2 MV PHT 49 ms MV Area (PHT) 4.5 cm2 4.0-5.0 MV Diastolic Function MV E Peak Velocity 102 cm/s MV A Peak Velocity 96 cm/s MV E/A 1.1 MV Decel Time 169 ms MV Annular TDI MV E/e' (Septal) 11.3 <=8.0 MV E/e' (Lateral) 14.9 <=8.0 MV E/e' (Average) 13.1 Tricuspid Valve Name Value Normal Estimated PAP/RSVP RA Pressure 5 mmHg <=5 Aorta Name Value Normal Ascending Aorta Ao Root Diameter (MM) 2.7 cm Ao Root Diam Index (MM) 1.2 cm/m2 Aortic Valve Name Value Normal AV Doppler AV Peak Velocity 137 cm/s AV Peak Gradient 7 mmHg AV Mean Gradient 3 mmHg AV VTI 25 cm AV Area (Cont Eq VTI) 2.4 cm2 >=3.0 AV Area (Cont Eq Juan) 2.3 cm2 AV Regurgitation 2D LVOT Area 3.0 cm2 Ventricles Name Value Normal LV Dimensions 2D/MM IVS Diastolic Thickness (2D) 0.8 cm 0.6-1.0 LVID Diastole (2D) 5.1 cm 3.8-5.2 LVIW Diastolic Thickness (2D) 0.8 cm 0.6-0.9 LVID Systole (2D) 3.2 cm 2.2-3.5 LVOT Diameter 2.0 cm LV Mass (2D Cubed) 136.10 g 67.00-162.00 LV Mass Index (2D Cubed) 62 g/m2 43-95 Relative Wall Thickness (2D) 0.31 LV Fractional Shortening/Ejection Fraction 2D/MM LV Fractional Shortening (2D) 37 % 27-45 LV EF (2D Teicholz) 67 % 54-74 LV Diastolic Volume (4C MOD) 50 ml LV EF (4C MOD) 69 % LV Diastolic Volume (2C MOD) 51 ml LV EF (2C MOD) 58 % LV Diastolic Volume (BP MOD) 51 ml 46-106 LV Diastolic Volume Index (BP MOD) 23 ml/m2 29-61 LV Systolic Volume (BP MOD) 19 ml 14-42 LV Systolic Volume Index (BP MOD) 9 ml/m2 8-24 LV EF (BP MOD) 63 % 54-74 LV Diastolic Length (4C) 6.9 cm LV Systolic Length (4C) 5.4 cm LV Stroke Volume (4C MOD) 34 ml Atria Name Value Normal LA Dimensions LA Dimension (MM) 4.0 cm 2.7-3.8 LA Volume (4C A-L) 33 ml LA Volume (BP A-L) 35 ml RA Dimensions RA Area (4C) 14.9 cm2 <=18.0 Report Signatures
== END 2024-04-03 09:25 | disposition home or self-care (01) ==
PROVIDERS: PCP Family Medicine; Visit Provider Internal Medicine Cardiovascular Disease
DX: I51.89 Other ill-defined heart diseases (principal); R06.09 Other forms of dyspnea
CPT/HCPCS: 93306

== ENCOUNTER 2024-05-16 09:43 | Outpatient (CLI) | payer OTHER, SELFPAY ==
--- NOTE | ~2024-05-16 | MM_ITS ---
EXAMINATION: MM screening silvino BI w mamadou HISTORY: Screening mammogram, family history of breast cancer in her mother. TECHNIQUE: Craniocaudal and mediolateral oblique 3-D tomosynthesis images were obtained and synthetic 2-D images were generated. CAD analysis was submitted and interpreted. COMPARISON: 04/13/2023, 03/28/2022, 02/21/2021 BREAST PARENCHYMAL COMPOSITION:Not Dense. There are scattered areas of fibroglandular density. FINDINGS: No suspicious mass, calcification, or architectural distortion are identified in either candy ast to suggest malignancy. There has been no suspicious interval change. IMPRESSION: No mammographic evidence of malignancy. Recommend routine screening mammography in one year. BI-RADS Category 1: Negative Reviewed, dictated and finalized at location . 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
== END 2024-05-16 09:44 | disposition home or self-care (01) ==
PROVIDERS: PCP Family Medicine; Visit Provider Family Medicine
DX: Z12.31 Encounter for screening mammogram for malignant neoplasm of breast (principal)
CPT/HCPCS: 77063; 77067

== ENCOUNTER 2024-12-14 10:31 | Outpatient (CLI) | payer OTHER, SELFPAY ==
--- OUTSIDE RECORDS SUMMARY | 2024-12-14 10:46 | XMS_ITS | Clinical Summary ---
Author Organization [facility] Address [address] [place] [address] Care Team Providers Care Warehouse Administrator Name Role Phone Angelic Mckeon MD Primary Care Provider [phone] Allergies No known active allergies Medications lisinopriL (PRINIVIL) 5 mg tablet 10/12/2021 Active atorvastatin (LIPITOR) 10 mg tablet 10/12/2021 Active famotidine (PEPCID) 40 mg tablet Take 40 mg by mouth 2 times daily. Active Active Problems Problem Noted Date Diagnosed Date Secondary hypercoagulable state 10/14/2021 Family History Medical History Relation Name Comments Breast Cancer Mother Relation Name Status Comments Brother 1 Alive Brother 2 Alive Daughter Alive Father Mother Alive Sister 1 Alive Sister 2 Alive Sister 3 Alive Son 1 Alive Son 2 Alive Social History Tobacco Use Types Packs/Day Years Used Date Smoking Tobacco: Former Cigarettes Smokeless Tobacco: Never Comments:quit about 7 years ago Alcohol Use Standard Drinks/Week Comments Yes 0 (1 standard drink = 0.6 oz pur e alcohol) occasional Comments Unknown Sex and Gender Information Value Date Recorded Sex Assigned at Not on file Legal Sex Female 12:54 PM CDT Gender Identity Not on file Sexual Orientation Not on file Last Filed Vital Signs Vital Sign Reading Time Taken Comments Blood Pressure 116/77 10/14/2021 11:05 AM CDT Pulse 72 10/14/2021 11:05 AM CDT Temperature 36.8 C (98.2 F) 10/14/2021 11:05 AM CDT Respiratory Rate - - Oxygen Saturation 96% 10/14/2021 11:05 AM CDT Inhaled Oxygen Concentration - - Weight 96.7 kg (213 lb 1.6 oz) 10/14/2021 11:05 AM CDT Height 165.1 cm (5' 5) 10/14/2021 11:05 AM CDT Body Mass Index 35.46 10/14/2021 11:05 AM CDT Plan of Treatment Health Maintenance Due Date Last Done Comments DTAP/TDAP/TD VACCINES (1 - Tdap) 08/30/1990 HEPATITIS B VACCINES (1 of 3 - 19+ 3-dose series) 08/30/1990 HPV/Cotest (21-29) 08/30/1992 CERVICAL CANCER SCREENING 08/30/2001 HPV/Cotest (30-65) 08/30/2001 PAP SMEAR 08/30/2001 BREAST CANCER SCREENING 2011 COLORECTAL SCREENING 08/30/2016 Colorectal Cancer Screening 08/30/2016 FIT-DNA Q 3 years 08/30/2016 FIT/FOBT Q 1 year 08/30/2016 Flex Sig/CT Colonography Q 5 years 08/30/2016 ZOSTER VACCINE (1 of 2) 08/30/2021 COVID-19 Vaccine (3 - 2023- season) 2024, 02/27/2021 INFLUENZA VACCINE (#1) [address] [facility] [id number] [address] [place] Care Teams Warehouse Administrator Relationship Specialty Start Date End Date Angelic Mckeon MD PCP - General Family Practice 10/14/21
--- OUTSIDE RECORDS SUMMARY | 2024-12-14 10:46 | XMS_ITS | Clinical Summary ---
Author Organization [facility] Care Team Providers Care Clamp Truck Driver Name Role Phone Unavailable Primary Care Provider Unavailabl e Medications ranitidine (ZANTAC) 300 MG Tablet Take 300 mg by mouth 3 times daily. Active Social History Tobacco Use Types Packs/Day Years Used Date Smoking Tobacco: Never Assessed Comments Unknown Sex and Gender Information Value Date Recorded Sex Assigned at Not on file Legal Sex Female 11:21 PM CDT Gender Identity Not on file Sexual Orientation Not on file Plan of Treatment Health Maintenance Due Date Last Done Comments Hepatitis C Virus (HCV) Screening 1970 TdaP Immunization 1970 Hepatitis B Immunization (1 of 3 - 19+ 3-dose series) 08/30/1990 Pap Smear 08/30/1992 Cervical Cancer Screening (CCS) 08/30/2001 HPV/Cotest 08/30/2001 Cologuard 08/30/2016 Colonoscopy 08/30/2016 Colorectal Cancer Screening 08/30/2016 Immunochemical Fecal Occult Blood 08/30/2016 Pneumococcal Immunization (5 0+ years) (1 of 1 - PCV) 08/30/2021 Zoster Immunization (1 of 2) 08/30/2021 SARS-COV-2 Immunization (1 - 2023- season) 2024 Influenza Immunization (#1) 2025 Respiratory Syncytial Virus (RSV) Immunization (Adult) (1 - 1-dose 75+ series) 08/30/2046 Human Papillomavirus (HPV) Immunization Aged Out No longer eligible b ased on patient's age to complete this topic Meningococcal Immunization (ACWY) Aged Out No longer eligible based on patient's age to complete this topic Rotavirus Immunization Aged Out No lo nger eligible based on patient's age to complete this topic
--- OUTSIDE RECORDS SUMMARY | 2024-12-14 10:46 | XMS_ITS | Continuity of Care Document ---
Author Organization [facility] [place] [address] [facility] [address] [place] [address] Phone Care Team Providers Care Oil Well Fishing Tool Technician Name Role Phone Inessa Sanchez OD Unavailable Unavailable Allergies, Adverse Reactions, Alerts Substance Reaction Status Criticality No Known Allergies Active No Inform ation Medications Medication Instructions Dosage Effective Dates (start - stop) Status Comments albuterol sulfate HFA 90 mcg/actuation aerosol inhaler inhale 2 puff by inhalation route every 4 - 6 hours as needed 180 MCG - Active atorvastatin 10 mg tablet take 1 tablet by oral route every day 10 MG - Active gabapentin 300 mg capsule take 2 capsule by oral route 3 times every day 600 MG - Active hydrochlorothiazide 25 mg tablet take 1 tablet by oral route every day 25 MG - Active Carl SolIsidroar U-300 Insulin 300 unit/mL (1.5 mL) subcutaneous pen inject by subcutaneous route as per insulin protocol 0.00 - Active losartan 25 mg tablet take 1 tablet by oral route every day 25 MG - Active metoprolol tartrate 25 mg tablet take 1 tablet by oral route 2 times every day 25 MG - Active Januvia 100 mg tablet take 1 tablet by oral route every day 100 MG - Active famotidine 40 mg tablet take 1 tablet by oral route every day at bedtime 40 MG - Active lisinopril 5 mg tablet take 1 tablet by oral route every day 5 MG - Active Procedures Procedure Date SCODI, Posterior Segment Gray-31-2025 No Charge GDX Retina No Charge Optomap Fundus Photos 025 No Charge Refraction Office/outpatient Visit, Est No Charge GDX Retina No Charge Optomap Fundus Photos 025 No Charge Refraction Office/outpatient Visit, Est Fundus Photography W/ Report Eye Exam, New Patient Advance Directives Directive Yes / No Effective Date File Name Other Directive No N/A N/A WARNING:The information contained in this section is historical and is provided for information only and does not constitute a legal document or any assurance that the information is still accurate. Please verify the information with the murdock of the legal document before using it for clinical purposes. Encounters Encounter Description Practice Location Reason(s) For Visit Diagnoses Date Provider Providers Copied on Encounter Office/outpa tient Visit, [facility] [place] [facility], [facility] [employer] [address], [place], [place], [id number], tel:[phone] SEC Nav RICE Professional 1 Month follow up (chief complaint) Type 2 diabetes mellitus without complications Blurred visionPseudop apilledema of both optic discs 5 Daniel OD Inessa. [facility], [address], [place], [place], [address], [place]. tel:[phone] Claudia Swenson NP.Referrin g Provider: Claudia Swenson NP, [address], [address]. tel:[phone] [facility], [address], [place], [place], [address], [place] tel:[phone] [facility] [place] DWAYNE Professional diabetic eye exam (chief complaint) Type 2 diabetes mellitus without complications Vitreous degeneration, bilateralLatt ice degeneration of retina, bilateralPavi ng stone degeneration of retina, bilateralAge- related nuclear cataract, bilateral 5 Daniel OD Inessa. [address], [address], [place], [address], . tel:[phone] Specialist: Claudia Swenson SPORTS STATISTICIAN, [address], [address]. tel:[phone] ring Provider: Angelic Mckeon MD, [address] [place] [address], [address]. tel:[phone] [facility]ly [facility], [address], [place], [place], [address], [place] tel:[phone] SEC Nav RICE Professional Complete Exam (chief complaint) Type 2 diabetes mellitus without complications Vitreous degeneration, bilateralLatt ice degeneration of retina, bilateral 3 Colt Forman. [address] [facility], [facility] [place], [address], [place]. tel:[phone] Referring Provider: Angelic Mckeon MD, [address] [place] [address], [address]. tel:[phone] [facility], [address], [place], [place], [address], [place] tel:[phone] SEC Nav DWAYNE Professional No Information 2 Colt Forman. [address] [facility], [facility] [place], [place], [address], [place]. tel:[phone] Family History Family Member Type Diagnosis Age At Onset Mother Problem (finding) Arthritis Maternal Grandmother Problem (finding) Arthritis Sister Problem (finding) Diabetes Type II Maternal Grandmother Problem (finding) High blood pres sure Brother Problem (finding) Diabetes Type II Sister Problem (finding) Arthritis Brother Problem (finding) Alcoholism Brother Problem (finding) High blood pressure Sister Problem (finding) High blood pressure Sister Problem (finding) Stroke Father Problem (finding) Asthma/COPD Brother Problem (finding) Asthma/COPD Maternal Grandfather Problem (finding) Cancer (other t ypes) Problem Family history o f Diabetes mellitus Mother Problem (finding) Thyroid Disease Mother Problem (finding) Heart Disease Father Problem (finding) Alcoholism Sister Problem (finding) Gall stones Maternal Grandmother Problem (finding) Glaucoma Brother Problem (finding) Depression Maternal Grandmother Problem (finding) Thyroid Disease Mother Problem (finding) Diabetes Type II Problem Family history of Glaucoma Mother Problem (finding) High blood pressure Mother Problem (finding) Breast Cancer Maternal Grandmother Problem (finding) High cholestero l Brother Problem (finding) High cholesterol Maternal Grandmother Problem (finding) Diabetes Type I I Sister Problem (finding) High cholesterol Brother Problem (finding) Mental Illness Mother Problem (finding) High cholesterol Sister Problem (finding) Asthma/COPD Maternal Grandmother Problem (finding) Heart Disease Maternal Grandmother Problem (finding) Asthma/COPD Mother Problem (finding) Gall stones Payers Payer name Insurance type Covered republican ID Sandeep gonsalves(s) [facility] Commercial CI [id number] Social History Type Description Quantity Date Captured Comments Alcohol Use Details Caffeine Use Details Tobacco Use Status Ex-cigarette smoker 025 Smoking Status Former smoker Smoking Tobacco Use Details Cigarette: Age Started: 22, Age Stopped: 46, Years Used 24 Cigarette: 1 Packs per day, Pack Year: 24 Sex Female Chief Complaint And Reason For Visit From encounter dated '11/30/2024 10:15'. 1 Month follow up (chief complaint). Description: The 54 year old patient presents for evaluation of 1 Month follow up in the right eye and left eye. Pt is DM II Last A1C: 7.2 BS: 148. Pt states vision is about 85% better. Pt states she can drive herself now. Pt denies pain, pressure and flashes oflights. Pt notes having HX of floaters. Reason For Referral Reason For Referral No Information Plan Of Treatment Date Type Action Status Goal Tobacco cessation counseling completed Goal Tobacco cessation counseling completed Appointment Olive Khalil BOOKED Patient Education Type 2 Diabetes: Care I nstructions completed Patient Education Learning About Vitreous Detachment completed Patient Education Learning About Vitreous Detachment completed History Of Present Illness Encounter Date Complaint History Of Prese nt Illness 1 Month follow up The 54 year ol d patient presents for evaluation of 1 Month follow up in the right eye and left eye. Pt is DM II Last A1C: 7.2 BS: 148. Pt states vision is about 85% better. Pt states she can drive herself now. Pt denies pain, pressure and flashes of lights. Pt notes having HX of floaters. diabetic eye exam The 54 year ol d patient presents for a complete Type II diabetic exam ou. BS currently is 155 and last A1C was 11.9 and SPORTS STATISTICIAN Claudia Swenson treats her DM. Patient c/o blurry vision ou since last Wednesday. Patient states she seems better without her glasses. Patient states she got new glasses at [facility] 6 months. Patient c/o floaters ou. Complete Exam The 51 year old patient presents for evaluation of Complete Exam in the right eye and left eye. Pt is NIDDM II x 2 wks ago, followed by PCP, pt reports BS was 209 yesterday and A1C was 7.7 on April 10. Pt reports she has had floaters before but she has floater in OS that is white and big x 3-4 wks. Pt reports she doesn't use any gtts, OU. Functional Status Date Functional Assessmen t No Information Instructions Date Instruction Additional Infor praveen Impression/Plan Impression/Plan Impression/Plan Assessments Type Assessment Date assessment Type 2 diabetes mellitus without complications assessment Blurred vision assessment Pseudopapilledema of both optic discs Patient Care Teams Name Effective Dates (start - stop) Status Members No Information
--- OUTSIDE RECORDS SUMMARY | 2024-12-14 10:46 | XMS_ITS | Clinical Summary ---
Author Organization [facility] Address [address] [place] [address] Care Team Providers Care Industrial Garage Servicer Name Role Phone Angelic Mckeon MD Primary Care Provider [phone] Source Comments [facility],non-owned Affiliates and Associated Physician Practices is amultiple site organization consisting of ambulatory clinics and hospital sitesin [place], [place], [place] and [place]. This disclosure is being madepursuant to the Care Everywhere program and may not contain all information available regarding this patient. Last updated 18.[facility] Allergies No known active allergies Medications * Be aware that medications may not be up to date on this document. Alwaysverify current medications with the patient. RANITIDINE HCL PO Ac tive Social History Tobacco Use Types Packs/Day Years Used Date Smoking Tobacco: Every Day Comments Unknown Sex and Gender Information Value Date Recorded Sex Assigned at Not on file Legal Sex Female 4:23 PM CDT Gender Identity Not on file Sexual Orientation Not on file Last Filed Vital Signs Vital Sign Reading Time Taken Comments Blood Pressure 134/80 08/13/2017 5:41 PM CDT Pulse 90 08/13/2017 5:41 PM CDT Temperature 37.2 C (98.9 F) 08/13/2017 5:41 PM CDT Respiratory Rate - - Oxygen Saturation 96% 08/13/2017 5:41 PM CDT Inhaled Oxygen Concentration - - Weight 97.5 kg (215 lb) 08/13/2017 5:41 PM CDT Height 165.1 cm (5' 5) 08/13/2017 5:41 PM CDT Body Mass Index 35.78 08/13/2017 5:41 PM CDT Plan of Treatment Health Maintenance Due Date Last Done Comments COLOGUARD (AGES 45-75) - COL ON CA SCREENING 1971 COLON MONITORING 1971 COLONOSCOPY - COLON CA SCREENING 1971 CT COLONOGRAPHY - COLON CA SCREENING 1971 Colorectal Cancer Screening 1971 FIT - COLON CA SCREENING 1971 FLEX SIG - COLON CA SCREENING 1971 LIPID TESTING 1971 MAMMOGRAM 1971 HIV SCREENING 08/30/1986 HEPATITIS C SCREENING 08/26/1989 DTAP/TDAP/TD VACCINES (1 - Tdap) 08/30/1990 HEPATITIS B VACCINE (1 of 3 - 19+ 3-dose series) 08/30/1990 SCREENING FOR DIABETES 08/13/2017 PNEUMOCOCCAL VACCINE 50+ (1 of 1 - PCV) 08/30/2021 ZOSTER VACCINE (1 of 2) 08/30/2021 COVID-19 VACCINE (1 - 2023-2 5 season) 2024 DEPRESSION SCREENING 05/03/2024 INFLUENZA VACCINE (#1) 2025 HIB VACCINE Aged Out No longer eligi ble based on patient's age to complete this topic HPV VACCINE Aged Out No longer eligi ble based on patient's age to complete this topic MENINGOCOCCAL (Group B) VACC INE SHARED DECISION-MAKING Aged Out No longer eligibl e based on patient's age to complete this topic MENINGOCOCCAL GROUPS A/C/Y/W VACCINE Aged Out No longer eligible b ased on patient's age to complete this topic Insurance [facility] Care Teams Industrial Garage Servicer Relationship Specialty Start Date End Date Angelic Mckeon MD [address] [place] [id number] PCP - General Family Medicine 08/13/17
== END 2024-12-14 10:32 | disposition home or self-care (01) ==
LOC: ANHGOSHLAB 10:32
PROVIDERS: PCP Family Medicine; Visit Provider Family Medicine
DX: Z01.84 Encounter for antibody response examination (principal)
CPT/HCPCS: 36415

== ENCOUNTER 2025-04-07 09:09 | Emergency (ER) | payer OTHER, SELFPAY ==
--- OUTSIDE RECORDS SUMMARY | 2025-04-07 09:11 | XMS_ITS | Clinical Summary ---
Author Organization [facility] Care Team Providers Care Liquefaction And Regasification Helper Name Role Phone Unavailable Primary Care Provider [...] 08/30/2021 Zoster Immunization (1 of 2) 08/30/2021 Influenza Immunization (#1) 2025 SARS-COV-2 Immunization ( - season) 2025 Respiratory Syncytial Virus (RSV) Immunization (Adult) [...]
--- OUTSIDE RECORDS SUMMARY | 2025-04-07 09:12 | XMS_ITS | Data Portability ---
Author Organization [facility]- Address [address] [facility] [place] [address] Assessment No assessment recorded. Plan of Treatment Reminders Order Date Submit Date Provider Last Modified By Organization Details Last Modified Time Details Appointments None record ed. Lab None record ed. Referral None record ed. Procedures None record ed. Surgeries None record ed. Imaging None record ed. Medication Orders None record ed. Patient TargetsNo targets recorded. Patient InstructionsNo instructions recorded. Reason for Referral None Reported. Problems No Known Problems Medical Equipment None Reported. Allergies No known drug allergies Medications Not known to be on any medication Vitals None Recorded Social History None recorded. Functional Status None recorded. Mental Status None recorded. Family History Nothing Reported. Medical History No medical history recorded. Gynecological HistoryNo gynecological history recorded. Obstetrics History GPAL:G 0 P 0 0 0 0 Immunizations Vaccine Type Date Status Note Provider Nam e and Address Organization Details Recorded Time COVID-19, mRNA, LNP-S, PF, 30 mcg/0.3 mL dose 02/27/2021 completed Hilary Sauceda [facility], 02/27/2021 15:28:53 COVID-19, mRNA, LNP-S, PF, 30 mcg/0.3 mL dose 03/20/2021 completed Marge Delacruz [facility], 03/20/2021 15:25:27 Past Encounters Encounter ID Performer Location Encounter Start Date Encounter Closed Date Diagnosis/Indication Diagnosis SNOMED-CT Code Diagnosis ICD10 Code Diagnosis IMO Codes Diagnosis Note [id number] Ashleigh Galan MD [facility] [address] [facility] [address] [place] [address] 02/27/2021 15:15:48 02/28/2021 16:06:58 Active immunization [id number] [id number] Ashleigh Galan MD [facility] [address] [address] 03/20/2021 15:13:57 03/21/2021 16:07:00 Active immunization [id number] Z23 Health Concerns Section Related Observation LastModified by Organization Detai ls LastModified Time None Recorded Concern Status LastModified by Organization Details LastModified Time None Recorded Advance Directives Directive None Recorded Payers Insurance Date Sequence Insurance Name Policy Number Policy [place] Covered Member ID [place] Member ID Guarantor Name 03/17/2021 2 [employer] (PP[employer]) [id number] Jimbo Hines [id number] Olive Khalil 03/17/2021 1 [facility] [id number] Brent Khalil [id number] Olive Khalil OBGyn Episode No OBEpisode recorded.
--- OUTSIDE RECORDS SUMMARY | 2025-04-07 09:12 | XMS_ITS | Clinical Summary ---
Author Organization [facility] Address [address] [place] [address] Care Team Providers Care Refining Supervisor Name Role Phone Angelic Mckeon MD Primary Care Provider [phone] Source Comments [facility],non-owned Affiliates and Associated Physician Practices is amultiple site organization consisting of ambulatory clinics and hospital sitesin [place], [place], [place] and [place]. This disclosure is being madepursuant to the Care Everywhere program and may not contain all information available regarding this patient. Last updated 18.[facility] Allergies No known active allergies Medications * [...] 08/30/2021 ZOSTER VACCINE (1 of 2) 08/30/2021 DEPRESSION SCREENING 05/03/2024 COVID-19 VACCINE (1 - 2024-2 6 season) 2025 INFLUENZA VACCINE (#1) 2025 HIB VACCINE Aged [...] age to complete this topic Insurance [facility] Care Teams Refining Supervisor Relationship Specialty Start Date End Date Angelic Mckeon MD [address] [place] [id number] PCP - General Family Medicine 08/13/17
--- OUTSIDE RECORDS SUMMARY | 2025-04-07 09:12 | XMS_ITS | Clinical Summary ---
Author Organization [facility] Address [address] [facility] [place] [address] Care Team Providers Care Nba Player Name Role Phone Angelic Mckeon MD Primary Care Provider [phone] Allergies No known active allergies Medications lisinopriL [...] 08/30/2016 ZOSTER VACCINE (1 of 2) 08/30/2021 INFLUENZA VACCINE (#1) 2024 COVID-19 Vaccine ( season) 2025, 02/27/2021 Insurance [employer] [facility] HeTexted [id number] Member Subscriber Plan / Payer (Ef fective 2021-Present) Name:Olive Khalil Relation to Subscriber:Spouse Name:ANA KHALIL Date of :1967 (Home) Address: [address] [place] [address] Payer ID:[id number] (NAIC) Type:HMO Address: [facility] [id number] [place] [id number] [place] Care Teams Nba Player Relationship Specialty Start Date End Date Angelic Mckeon MD PCP - General Family Practice 10/14/21
[2025-04-07 09:15] VITALS: BP 113/76; PULSE 81; RESP 18; TEMP 36.1; O2SAT 99
[2025-04-07 09:31] LABS: EDUAAPPEAR Cloudy; EDUABILI Negative (Negative); EDUABLOOD 2+ (Negative); EDUACOLOR1 Yellow; EDUAGLUCOSE Negative (Negative); EDUAKETONE Negative (Negative); EDUALEUKO 3+ (Negative); EDUANITRATE Negative (Negative); EDUAPH 6.0; EDUAPROTEIN 3+ (Negative); EDUASPGRAVITY 1.030; EDUAUROBILI 1.0
--- NOTE | 2025-04-07 09:37 | ED.FEMALEGU ---
HPI - Female Genitourinary General Chief complaint: Urogenital-Female Stated complaint: Urinary Problem Time Seen by Provider: 04/07/25 09:37 Source: patient Mode of arrival: ambulatory Limitations: no limitations History of Present Illness HPI Narrative: 54 yo F presents with c/o R sided low/mid back pain for 1 wk. Yesterday began having dysuria, frequency. Denies nausea vomiting. Afebrile. All systems reviewed and negative except as noted above. Related Data Home Medications ?Medication ?Instructions ?Recorded ?Confirmed ?Last Taken ?Type insulin glargine U-300 conc 300 18 unit subcut QHS 01/30/25 01/30/25 Unknown History unit/mL (3 mL) subcutaneous pen (Toujeo Max U-300 SoloStar) Allergies Allergy/AdvReac Type Severity Reaction Status Date / Time empagliflozin (From AdvReac Severe vaginitis Verified 04/07/25 09:42 Jardiance) with higher dose of jardiance. tolerated 10 mg semaglutide (From Rybelsus) AdvReac Severe Abdominal Verified 04/07/25 09:42 Pain metformin AdvReac Intermediate Abdominal Verified 04/07/25 09:42 Pain PMFSH Past Medical History Medical History Abnormal electrocardiogram [ECG] [EKG] Right lateral epicondylitis Polyp of duodenum egd 04.18.21/path: HETEROTOPIC GASTRIC MUCOSA WITH MILD CHRONIC INFLAMMATION Chronic cholecystitis Pharyngoesophageal dysphagia Prediabetes (06/16/17) Family History Family History Father Patient's father is , Onset Age: 46 Sibling Family history of multiple sclerosis Diabetes mellitus Family history of cardiovascular disease Mother Hypertension Family history of cardiovascular disease Family history of malignant neoplasm of breast in first degree relative Other Cerebrovascular accident Family history of Hodgkin's lymphoma Family history of allergic disorder Family history of arthritis Family history of attention deficit hyperactivity disorder (ADHD) Family history of bipolar disorder Family history of glaucoma Family history of kidney disease Family history of malignant neoplasm Family history of malignant neoplasm of breast Family history of mental disorder Social History Social History Smoking packs per day: 1 Smoking cigarettes per day: 20.0 Years smoked: 6 Smoking pack-years: 6.00 Smoking status: Never smoker Tobacco type: e-cigarettes/vaping Smoking end date: 05/03/11 Additional smoking assessment comments: quit cigarettes, still vapes daily if needed Alcohol intake: current Alcohol use details: SOCIALLY Substance use: never Substance use type: does not use Lack of Transportation: No Lack of Food: Never True Current Housing: I Have Housing Concerned About Future Housing: No Difficulty Paying Gas/Electric Bills: No Difficulty Paying for Meds: No Currently Unemployed: No Education: Trade/Vocational Certificate Difficulty w/ Childcare or Family Care: No Living arrangements: with family Additional living arrangements comments: lives with spouse & adult children, son has Downs' syndrome and requires care Spiritual care concerns: No Comments At time of signature, agree with nursing past medical, surgical, social and family history. There is no relevant family history pertinent to the presenting complaint. Exam Narrative: GENERAL: This is a well-nourished, well-developed patient, in no apparent distress. HEAD: normocephalic, atraumatic. EYES: PERRL. Sclera clear/white. Vision is grossly intact. EARS: External ears normal NOSE: External nose normal NECK: Neck supple, non-tender without lymphadenopathy, masses or thyromegaly. CARDIOVASCULAR: Regular rate and rhythm without murmurs, gallops, or rubs. RESPIRATORY: Clear to auscultation. Breath sounds equal bilaterally. No wheezes, rales, or rhonchi. SKIN: warm, Dry, intact with no suspicious lesions or rash, good texture and turgor. NEURO: awake, alert, and oriented to person, place and time. There were no obvious focal neurologic abnormalities. EXTREMITIES: No joint tenderness, effusion, or edema noted. No calf tenderness. Negative Homans sign bilaterally. BACK: No CVA tenderness. Course Course Level of Care: Express Care Visit Vital Signs Vital signs: Vital Signs Temperature 36.1 C L 04/07/25 09:15 Pulse Rate 81 04/07/25 09:15 Respiratory Rate 18 04/07/25 09:15 Blood Pressure 113/76 04/07/25 09:15 Pulse Oximetry 99 04/07/25 09:15 Oxygen Delivery Room Air 04/07/25 09:15 Temperature 36.1 C L 04/07/25 09:15 Pulse Rate 81 04/07/25 09:15 Respiratory Rate 18 04/07/25 09:15 Blood Pressure 113/76 04/07/25 09:15 Pulse Oximetry 99 04/07/25 09:15 Oxygen Delivery Room Air 04/07/25 09:15 Reviewed MDM MDM Narrative Medical decision making narrative: urinalysis positive leukocytes, positive blood. Will treat with antibiotic for urinary tract infection. Patient is well-appearing, nontoxic. Differential Diagnosis Differential Diagnosis: urinary tract infection, pyelonephritis, kidney stone Lab Data Labs: Lab Results 04/07/25 Range/Units 09:28 POC Urine Color Yellow POC Urine Clarity Cloudy POC Urine pH 6.0 POC Ur Specif [place] 1.030 POC Urine Protein 3+ (Negative) POC Ur Glucose (UA) Negative (Negative) POC Urine Ketones Negative (Negative) POC Urine Blood 2+ (Negative) POC Urine Nitrite Negative (Negative) POC Urine Bilirubin Negative (Negative) POC Urine Urobilinogen 1.0 POC U Leukocyte Esteras 3+ (Negative) Discharge Plan Discharge Clinical Impression: Urinary tract infection Patient Disposition: Home Condition: Stable Instructions: Antibiotic Form, Urinary Tract Infection in Women (ED) Additional Instructions: Take antibiotic as prescribed until gone. Drink at least 64 oz of water a day. See your doctor if not improving. if you have severe pain, fever, vomiting go to the ER. Patient Language: Italian Prescriptions: New amoxicillin-pot clavulanate [Augmentin] 500-125 mg tablet 1 tablet PO BID 7 Days Qty: 14 0RF No Action albuterol sulfate 90 mcg/actuation HFA aerosol inhaler 1 inh inhalation Q4H Qty: 8.5 0RF (DME) OneTouch Verio test strips Strip See Rx Instructions .ROUTE .MEDSUPPLY Qty: 400 1RF Rx Instructions: Check glucose 3-4 times a day (DME) blood-glucose meter [OneTouch Verio Reflect Meter] Misc See Rx Instructions .Route Qty: 1 2RF Rx Instructions: As directed (DME) lancets [OneTouch Delica Plus Lancet] 33 gauge misc See Rx Instructions .ROUTE .MEDSUPPLY Qty: 100 0RF Rx Instructions: Check glcuose (DME) FreeStyle Mallorie 3 Plus Sensor Device See Rx Instructions .ROUTE .MEDSUPPLY Qty: 6 2RF Rx Instructions: Use to monitor glucose insulin glargine U-300 conc [Toujeo Max U-300 SoloStar] 300 unit/mL (3 mL) insulin pen 18 unit subcut QHS Rx Instructions: 18 units, will titrate up to 30 units daily glucagon 3 mg/actuation spray,non-aerosol 3 mg intranasal ONCE PRN (Reason: hypoglycemia ) Qty: 2 4RF Rx Instructions: as a single dose; may repeat once in 15 minutes if no response atorvastatin 10 mg tablet 10 mg PO DAILY Qty: 90 3RF famotidine 40 mg tablet 40 mg PO Q12H Qty: 180 3RF losartan 25 mg tablet 25 mg PO DAILY Qty: 90 3RF gabapentin 300 mg capsule 300 mg PO QHS Qty: 90 1RF (DME) pen needle, diabetic [Sandee Pen Needle] 32 gauge x 5/32 needle See Rx Instructions .Route Qty: 400 3RF Rx Instructions: As directed metoprolol tartrate 25 mg tablet 12.5 mg PO BID Qty: 90 1RF hydrochlorothiazide 25 mg tablet 25 mg PO QAM Qty: 90 1RF Mounjaro 5 mg/0.5 mL pen injector 5 mg subcut WEEKLY Qty: 6 1RF Follow-up/Referrals: Nicho,JOSE Vega [Primary Care Provider, Unknown] Time of Disposition: 09:43
== END 2025-04-07 09:45 | disposition home or self-care (01) ==
PROVIDERS: Emergency Provider Nurse Practitioner Family; PCP Physician Assistant
DX: N39.0 Urinary tract infection, site not specified (principal); F17.290 Nicotine dependence, other tobacco product, uncomplicated; R73.03 Prediabetes
CPT/HCPCS: 81003; 87086; 87186; 99213; G0463

== ENCOUNTER 2025-04-27 12:52 | Outpatient (CLI) | payer OTHER, SELFPAY ==
--- NOTE | ~2025-04-27 | US_ITS ---
US renal BI 04/27/2025 13:30 Procedure: Realtime transabdominal ultrasound of the kidneys and bladder. Indication: Recurring UTI Comparison: No prior studies for comparison. Findings: Renal echotexture is normal bilaterally without hydronephrosis, contour deforming mass or renal calculus. The right kidney measures 10.1 cm and left kidney measures 11 cm. Bladder within normal limits. Prevoid volume is 1 71 cc. Postvoid volume 17 cc. Impression: 1: Unremarkable renal ultrasound. No stones, masses or hydronephrosis. Reviewed, dictated and finalized at location O. INSTRUCTOR Impression: 1: Unremarkable renal ultrasound. No stones, masses or hydronephrosis.
== END 2025-04-27 12:53 | disposition home or self-care (01) ==
LOC: GOSHIMG 12:53
PROVIDERS: PCP Family Medicine; Visit Provider Family Medicine
DX: N39.0 Urinary tract infection, site not specified (principal)
CPT/HCPCS: 76770